=== PATIENT | male | born 1990 | race Hispanic/Latino ===

== ENCOUNTER 2023-12-11 10:52 | Emergency (ER) | payer SELFPAY ==
[2023-12-11 11:03] VITALS: BP 127/87
[2023-12-11 11:17] VITALS: BP 127/87
[2023-12-11 12:00] VITALS: BP 121/71
--- NOTE | 2023-12-11 12:41 | ED.GENMED ---
History of Present Illness
General
Chief Complaint: Anxiety
Source: patient and other (Language line magazine writer [id number])
Exam Limitations: none
Time Seen by Provider: 12/11/23 12:05
Nursing documentation reviewed up to this point in time: agreed with
Travel History
Have you had any contact with someone who has COVID-19?: No
Do you have any symptoms of coronavirus? Fever > 100 degrees, chills, cough, shortness of breath, sore throat, loss of taste or smell, muscle aches, or headache?: No
History of Present Illness
History of Present Illness:
33 yo male with h/o anxiety, prescribed Clonazepam but didn't have it with him on his way to work today as passenger in car. States he became dizzy, shaky, nervous, coworker's called EMS and brought him here. States he is 100% back to baseline and
wants to go home.
Denies any symptoms at this time, had no SOB, CP, abd. pain, n/v/d/c.
Usually takes 1/4 of a pill of Clonazepam when he gets these attacks which are infrequent. He did not have the medication with him. States today's symptoms are exactly like previous episodes.
Past History
Past History
ED Past Medical History: Psychiatric (anxiety)
ED Past Surgical History: None
Social History
Tobacco: Non-smoker
Personal: Single
Employment: Employed
Review of Systems
Review of Systems
Allergies reviewed?: Yes
All Other Systems: ROS reviewed and negative except as documented in HPI and ROS
Constitutional: Denies fever or fatigue
Respiratory: Denies trouble breathing
Cardiac: Denies chest pain
ABD/GI: Denies abdominal pain, nausea, vomiting, diarrhea or anorexia
: Reports no symptoms
Musculoskeletal: Reports no symptoms
Skin: Reports no symptoms
Neurological: Reports no symptoms
Phy Exam
Physical Exam
Physical Exam:
GENERAL: No acute distress. A&Ox3.
CONSTITUTIONAL: Afebrile.
EYES: Clear, conjunctivae normal
ENMT: moist mucus membranes, Pharynx nl
RESPIRATORY: Regular respirations, nonlabored, lungs clear.
CARDIOVASCULAR: Regular rate and rhythm, no murmurs, no rubs.
GI: Soft, nontender, normal BS
MUSCULOSKELETAL: Moves with ease. Well perfused.
SKIN: Warm, dry, normal
PSYCH: Normal mood and affect. Well kept, interactive and appropriate
NEUROLOGIC: Awake, alert and oriented. No focal neurological deficits
Course
Vital Signs
Initial and Last Documented VS:
Initial Vital Signs
Pulse Resp Pulse Ox
73 15 93
12/11/23 10:57 12/11/23 10:57 12/11/23 10:57
Last Documented Vital Signs
Temp Pulse Resp BP Pulse Ox
97.9 F 65 19 121/71 96
12/11/23 11:17 12/11/23 12:45 12/11/23 12:45 12/11/23 12:00 12/11/23 12:45
MDM/Problems Addressed
Differential Diagnosis Includes:
Anxiety, dehydration, hypoglycemia
MDM/Problems Addressed:
33 yo male with h/o anxiety, prescribed Clonazepam but didn't have it with him on his way to work today as passenger in car. States he became dizzy, shaky, nervous, coworker's called EMS and brought him here. States he is 100% back to baseline and
wants to go home.
Denies any symptoms at this time, had no SOB, CP, abd. pain, n/v/d/c.
Usually takes 1/4 of a pill of Clonazepam when he gets these attacks which are infrequent. He did not have the medication with him. States today's symptoms are exactly like previous episodes.
No recent stressors
Has not eaten yet today.
Bedside glucose:
Recommended blood work to r/o dehydration but pt declined, states he feels much better and wants to be discharged
Chronic conditions affecting care: Psychiatric illness (anxiety)
*Critical Care Note
Total Time (30-74mins, 75-104mins- exclusive of procedures): Not Applicable
ED Attending Note
-
Portions of this chart may have been created with voice recognition software.� Occasional wrong word or��sound alike� substitutions may have occurred due to the inherent limitations of voice recognition software.
Discharge Plan
Departure
Patient Disposition: Home (Routine Discharge)
Date of Disposition: 12/11/23
Time of Disposition: 12:37
Patient with high blood pressure during this ER visit?: No
Condition: Good
Discharge Problem:
Anxiety attack
Instructions: Anxiety, Adult (DC)
Activity Restrictions/Additional Instructions:
As we discussed, take your medication as prescibed.
Interventions
Interventions:
*Risk Screen - Suicide Last Done: 12/11/23 11:17
*General Assessment Last Done: 12/11/23 11:17
*Neglect/Abuse Screening Last Done: 12/11/23 11:17
ED- Fall Risk Assessment Last Done: 12/11/23 13:32
*ED COVID-19 Vaccine History Last Done: 12/11/23 11:17
*Nursing Disposition Last Done: 12/11/23 13:32
ED-Psychological Assessment Last Done: 12/11/23 11:23
Discharge Date and Time
Discharge Date/Time: 12/11/23 13:33
Print Language: SAO TOMEAN
[2023-12-11 12:58] LABS: Glucose - Point of Care 83 mg/dl (70-99)
== END 2023-12-11 13:33 | disposition home or self-care (01) ==
LOC: EMR 10:52
PROVIDERS: EMERGENCY PHYSICIAN Emergency Medicine
DX: F41.0 Panic disorder [episodic paroxysmal anxiety] (principal)
CPT/HCPCS: 99282; 82962